=== PATIENT | female | born 1970 | race Caucasian/White ===

== ENCOUNTER 2021-02-23 03:42 | Inpatient (IN) | payer OTHER ==
--- NOTE | 2021-02-22 20:00 | NUR ---
REC'D REPORT ON PT AND ASSUMED CARE. INITIAL ASSESSMENT COMPLETED AND RECORDED PER FLOW SHEET. WILL ANSWER QUESTIONS WITH SHORT REPLIES BUT ONLY TALKS MINIMALLY THEN DOZES BACK OFF. PRODUCTIVE SOUNDING COUGH NOTED WITH RHONCHI AUSCULTATED IN UPPER LOBES. O2 SATS 99-100%. SCANT AMOUNT OF URINE NOTED IN RAMOS BAG. SCDs IN PLACE. WILL MONITOR FSBS AND ADJUST ACCORDINGLY.
[~2021-02-23] VITALS: Ht 165.1 cm; Wt 109.3 kg
[2021-02-23] VITALS (16 sets, daily range): BP systolic 86–130; BP diastolic 41–69; Ht 165.1 cm; Wt 109.3 kg
[2021-02-23 04:30] LABS: BILIRUBIN - TOTAL 0.36 mg/dL (0.2-1.3); CALCIUM 9.1 mg/dL (8.5-10.1); CREATININE - SERUM 4.2 mg/dL (0.6-1.3); MAGNESIUM - SERUM 2.1 mg/dL (1.8-2.4); PROTEIN - SERUM 6.1 g/dL (6.4-8.2)
[2021-02-23 04:42] LABS: ANION GAP 33.6 mmol/L (8-16)
[2021-02-23 04:45] LABS: CARBON DIOXIDE 9.1 mmol/L (21.0-32.0); POTASSIUM - SERUM 7.7 mmol/L (3.5-5.1)
[2021-02-23] MEDS ORDERED: HUMALOG 30100 UNITS/ (04:49)
[2021-02-23] MEDS ORDERED: TACROLIMUS ANHYD1 MG PO (04:50)
[2021-02-23] MEDS ORDERED: PEPCID AC20 MG PO (04:50)
[2021-02-23] MEDS ORDERED: CELLCEPT500 MG PO (04:50)
[2021-02-23 04:51] LABS: BASOPHILS 0.7 % (0-2); EOSINOPHILS 0 % (0-7); HEMATOCRIT 33.5 % (36.0-48.0); HEMOGLOBIN 9.1 g/dL (12-16); LYMPHOCYTES 1.3 % (15-50); MCH 25.5 pg (26.0-34.0); MCHC 27.1 g/dL (31.0-37.0); MCV 94.1 fL (80.0-100.0); MEAN PLATELET VOLUME 10.2 fL (7.4-10.4); MONOCYTES 6.3 % (2-11); NEUTROPHILS 91.7 % (40-80); PLATELET COUNT 368 10x3/uL (130-400); RBC 3.56 10x6/uL (4.00-5.40); RDW 14.3 % (11.5-14.5)
[2021-02-23] MEDS ORDERED: LIPITOR40 MG PO (04:51)
[2021-02-23] MEDS ORDERED: SODIUM BICARBO650 MG PO (04:51)
[2021-02-23] MEDS ORDERED: PREDNISONE5 MG PO (04:51)
[2021-02-23] MEDS ORDERED: TOPROL XL100 MG PO (04:52)
[2021-02-23] MEDS ORDERED: AZITHROMYCIN500 MG PO (04:52)
[2021-02-23] MEDS ORDERED: DIFLUCAN100 MG PO (04:53)
[2021-02-23] MEDS ORDERED: FERROUS SULFAT325 MG PO (04:53)
[2021-02-23] MEDS ORDERED: LEVO-T88 MCG PO (04:53)
[2021-02-23] MEDS ORDERED: LISINOPRIL5 MG PO (04:53)
[2021-02-23] MEDS ORDERED: BAYER CHEWABLE81 MG PO (04:54)
[2021-02-23] MEDS ORDERED: NORVASC2.5 MG PO (04:54)
[2021-02-23 05:20] LABS: BILIRUBIN NEGATIVE (NEGATIVE); KETONE 2+ mg/dL (NEGATIVE); NITRITE NEGATIVE (NEGATIVE); UROBILINOGEN NORMAL mg/dL (< 2)
[2021-02-23 05:21] LABS: BACTERIA RARE HPF (NONE SEEN); GRANULAR CAST 0-5 LPF (NONE SEEN); SQUAMOUS EPITHELIAL 0-5 HPF (0-4); WHITE CELLS - URINE 0-5 HPF (0-4)
[2021-02-23 06:31] LABS: CALCIUM 8.9 mg/dL (8.5-10.1); CREATININE - SERUM 4.3 mg/dL (0.6-1.3)
[2021-02-23 06:40] LABS: ANION GAP 34.7 mmol/L (8-16); CARBON DIOXIDE 5.9 mmol/L (21.0-32.0); POTASSIUM - SERUM 7.6 mmol/L (3.5-5.1)
[2021-02-23 10:25] LABS: CALCIUM 7.6 mg/dL (8.5-10.1); CREATININE - SERUM 3.9 mg/dL (0.6-1.3)
[2021-02-23 10:33] LABS: ANION GAP 22.4 mmol/L (8-16); CARBON DIOXIDE 15.3 mmol/L (21.0-32.0); POTASSIUM - SERUM 5.7 mmol/L (3.5-5.1)
[2021-02-23 14:42] LABS: CALCIUM 8.1 mg/dL (8.5-10.1); CREATININE - SERUM 4.4 mg/dL (0.6-1.3)
[2021-02-23 14:43] LABS: ANION GAP 15.2 mmol/L (8-16); CARBON DIOXIDE 19.5 mmol/L (21.0-32.0); POTASSIUM - SERUM 4.7 mmol/L (3.5-5.1)
[2021-02-23 17:21] LABS: BILIRUBIN NEGATIVE (NEGATIVE); KETONE LARGE mg/dL (NEGATIVE); NITRITE NEGATIVE (NEGATIVE); UROBILINOGEN NORMAL mg/dL (< 2)
[2021-02-23 17:22] LABS: AMORPHOUS SEDIMENT >1+ LPF (NONE SEEN); BACTERIA MANY HPF (NONE SEEN); SQUAMOUS EPITHELIAL NONE SEEN HPF (0-4); WHITE CELLS - URINE NONE SEEN HPF (0-4)
[2021-02-23 19:08] LABS: ANION GAP 14.6 mmol/L (8-16); CALCIUM 8.3 mg/dL (8.5-10.1); CREATININE - SERUM 4.5 mg/dL (0.6-1.3); POTASSIUM - SERUM 4.6 mmol/L (3.5-5.1)
[2021-02-23 23:04] LABS: ANION GAP 17.7 mmol/L (8-16); CALCIUM 8.5 mg/dL (8.5-10.1); CARBON DIOXIDE 18.3 mmol/L (21.0-32.0); CREATININE - SERUM 4.7 mg/dL (0.6-1.3)
--- NOTE | 2021-02-23 23:15 | NUR ---
LYING QUIETLY, ADJUSTING INSULIN PER PROTOCOL BASED ON RESULTS. VSS. O2 SAT REMAINS 99-100% ON 2L.
[2021-02-24] VITALS (24 sets, daily range): BP systolic 130–176; BP diastolic 51–82
[2021-02-24 02:55] LABS: ANION GAP 16.4 mmol/L (8-16); CALCIUM 8.3 mg/dL (8.5-10.1); CARBON DIOXIDE 20.6 mmol/L (21.0-32.0); CREATININE - SERUM 4.7 mg/dL (0.6-1.3)
--- NOTE | 2021-02-24 05:00 | NUR ---
FSBS STARTING TO GO UP, ADJUSTING INSULIN
[2021-02-24 06:38] LABS: CALCIUM 8.2 mg/dL (8.5-10.1); CARBON DIOXIDE 17.8 mmol/L (21.0-32.0); CREATININE - SERUM 4.7 mg/dL (0.6-1.3); MAGNESIUM - SERUM 1.6 mg/dL (1.8-2.4); PHOSPHOROUS 3.8 mg/dL (2.5-4.9); POTASSIUM - SERUM 4.8 mmol/L (3.5-5.1)
[2021-02-24 06:59] LABS: HEMATOCRIT 28.7 % (36.0-48.0); MCH 25.9 pg (26.0-34.0); MCHC 31.4 g/dL (31.0-37.0); MCV 82.5 fL (80.0-100.0); MEAN PLATELET VOLUME 8.7 fL (7.4-10.4); PLATELET COUNT 325 10x3/uL (130-400); RBC 3.47 10x6/uL (4.00-5.40); RDW 13.7 % (11.5-14.5)
[2021-02-24 09:20] LABS: ANION GAP 15.8 mmol/L (8-16); CALCIUM 8.3 mg/dL (8.5-10.1); CARBON DIOXIDE 18.9 mmol/L (21.0-32.0); CREATININE - SERUM 4.7 mg/dL (0.6-1.3); POTASSIUM - SERUM 4.7 mmol/L (3.5-5.1)
--- NOTE | 2021-02-24 10:39 | NUR ---
Dr. Kim notified of consult.
[2021-02-24 13:13] LABS: ANION GAP 14.9 mmol/L (8-16); CALCIUM 8.3 mg/dL (8.5-10.1); CARBON DIOXIDE 19.5 mmol/L (21.0-32.0); CREATININE - SERUM 4.4 mg/dL (0.6-1.3); POTASSIUM - SERUM 4.4 mmol/L (3.5-5.1)
[2021-02-24 13:26] LABS: ANISOCYTOSIS OCC; LYMPHOCYTES 14 % (15-50); MONOCYTES 12 % (2-11); NEUTROPHILS 74 % (40-80); PLATELET ESTIMATE NORMAL
--- NOTE | 2021-02-24 15:15 | NUR ---
Dr. Dawson notified of consult.
[2021-02-24 16:29] LABS: ANION GAP 15.6 mmol/L (8-16); CARBON DIOXIDE 19.3 mmol/L (21.0-32.0); CREATININE - SERUM 4.1 mg/dL (0.6-1.3); POTASSIUM - SERUM 4.9 mmol/L (3.5-5.1)
[2021-02-24 21:59] LABS: CALCIUM 7.9 mg/dL (8.5-10.1); CARBON DIOXIDE 18.5 mmol/L (21.0-32.0); CREATININE - SERUM 3.9 mg/dL (0.6-1.3); POTASSIUM - SERUM 4.5 mmol/L (3.5-5.1)
[2021-02-25] VITALS (24 sets, daily range): BP systolic 135–180; BP diastolic 54–86
[2021-02-25 02:09] LABS: ANION GAP 15.1 mmol/L (8-16); CALCIUM 7.9 mg/dL (8.5-10.1); CARBON DIOXIDE 20.1 mmol/L (21.0-32.0); CREATININE - SERUM 3.6 mg/dL (0.6-1.3); POTASSIUM - SERUM 4.2 mmol/L (3.5-5.1)
[2021-02-25 05:57] LABS: BASOPHILS 0.5 % (0-2); EOSINOPHILS 1.3 % (0-7); HEMATOCRIT 28.1 % (36.0-48.0); HEMOGLOBIN 8.9 g/dL (12-16); LYMPHOCYTES 6.2 % (15-50); MCH 25.9 pg (26.0-34.0); MCHC 31.5 g/dL (31.0-37.0); MCV 82.2 fL (80.0-100.0); MEAN PLATELET VOLUME 9.2 fL (7.4-10.4); MONOCYTES 7.1 % (2-11); NEUTROPHILS 84.9 % (40-80); PLATELET COUNT 295 10x3/uL (130-400); RBC 3.42 10x6/uL (4.00-5.40); RDW 13.9 % (11.5-14.5)
[2021-02-25 06:21] LABS: WBC 16.7 10x3/uL (4.8-10.8)
[2021-02-25 06:26] LABS: ALBUMIN 1.9 g/dL (3.4-5.0); ANION GAP 13.6 mmol/L (8-16); BILIRUBIN - TOTAL 0.17 mg/dL (0.2-1.3); CALCIUM 8.1 mg/dL (8.5-10.1); CARBON DIOXIDE 20.5 mmol/L (21.0-32.0); CREATININE - SERUM 3.4 mg/dL (0.6-1.3); POTASSIUM - SERUM 4.1 mmol/L (3.5-5.1); PROTEIN - SERUM 4.9 g/dL (6.4-8.2)
[2021-02-25 09:08] LABS: ANION GAP 11.9 mmol/L (8-16); CALCIUM 7.9 mg/dL (8.5-10.1); CARBON DIOXIDE 19.1 mmol/L (21.0-32.0); CREATININE - SERUM 3.1 mg/dL (0.6-1.3)
[2021-02-25 10:11] LABS: HEPATITIS C ANTIBODY <0.1 S/CO RAT (0.0-0.9)
[2021-02-25 13:04] LABS: ANION GAP 10.8 mmol/L (8-16); CARBON DIOXIDE 20.8 mmol/L (21.0-32.0); POTASSIUM - SERUM 4.6 mmol/L (3.5-5.1)
[2021-02-25 17:04] LABS: ANION GAP 12.7 mmol/L (8-16); CALCIUM 7.9 mg/dL (8.5-10.1); CREATININE - SERUM 2.7 mg/dL (0.6-1.3); POTASSIUM - SERUM 4.7 mmol/L (3.5-5.1)
[2021-02-25 21:07] LABS: ANION GAP 12.7 mmol/L (8-16); CALCIUM 8.1 mg/dL (8.5-10.1); CARBON DIOXIDE 22.4 mmol/L (21.0-32.0); CREATININE - SERUM 2.6 mg/dL (0.6-1.3); POTASSIUM - SERUM 4.1 mmol/L (3.5-5.1)
--- NOTE | 2021-02-25 21:34 | NUR ---
CONTACTED DR. RIOJAS OFFICE FOR ONCALL REGARDING CLOSED ANION GAP
--- NOTE | 2021-02-25 21:55 | NUR ---
DR. GLEZ GAVE ORDERS TO STOP INSULIN DRIP. SEE MAR FOR NEW ORDERS
--- NOTE | 2021-02-25 23:42 | NUR ---
I have reviewed this patient and I concur with the Shift Assessment completed by the Licensed Practical Nurse today this shift.
[2021-02-26] VITALS (14 sets, daily range): BP systolic 132–163; BP diastolic 61–80
--- NOTE | 2021-02-26 00:56 | NUR ---
SAT UP IN RECLINER FROM ABOUT 2230 UNTIL 0030. TOLERATED WELL
[2021-02-26 05:12] LABS: BASOPHILS 1.4 % (0-2); EOSINOPHILS 2.5 % (0-7); HEMATOCRIT 27.4 % (36.0-48.0); HEMOGLOBIN 8.7 g/dL (12-16); LYMPHOCYTES 10.9 % (15-50); MCH 26.2 pg (26.0-34.0); MCHC 31.8 g/dL (31.0-37.0); MCV 82.4 fL (80.0-100.0); MONOCYTES 4.8 % (2-11); NEUTROPHILS 80.4 % (40-80); PLATELET COUNT 278 10x3/uL (130-400); RBC 3.33 10x6/uL (4.00-5.40); RDW 13.5 % (11.5-14.5); WBC 13.2 10x3/uL (4.8-10.8)
[2021-02-26 05:37] LABS: CARBON DIOXIDE 18.7 mmol/L (21.0-32.0); CREATININE - SERUM 2.4 mg/dL (0.6-1.3); POTASSIUM - SERUM 4.7 mmol/L (3.5-5.1)
--- NOTE | 2021-02-26 07:56 | HP ---
PATIENT: RAMSES GREGG MEDICAL RECORD: [id number] ACCOUNT: [id number] LOCATION:[facility]2302 : 74 ADMISSION DATE: 02/23/21 PCP: No PCP HISTORY AND PHYSICAL EXAMINATION REASON FOR ADMISSION: Elevated blood sugar and confusion and dry mouth. HISTORY OF PRESENT ILLNESS: The patient is a 50-year-old female, type 1 diabetic with previous history of renal transplant, who has had some insulin pump issues, recently said it has been failing and malfunctioning within the last day. She lives in [place] where she was followed by physician, Dr. Jonah Guillaume. brought her to the ED this morning because of these symptoms. Her blood sugar was in excess of 1000 and pH of 7.20. She had nausea, but not vomiting. She feels just generally ill as when she had DKA in the past. She denies any recent fever, dysuria or cough. PAST MEDICAL HISTORY: Hypertension, hyperlipidemia, type 1 diabetes mellitus with renal transplant, has history of cryptococcal pneumonia and had pneumonia and treated at [facility] in 2019, hypothyroidism, anemia of chronic disease. SURGICAL HISTORY: Renal transplant. MEDICATIONS: Humalog insulin, dose unknown; Prograf 3 mg p.o. q.12 hours; CellCept 1000 mg p.o. b.i.d.; Pepcid 20 mg b.i.d.; sodium bicarbonate 650 mg p.o. b.i.d.; Lipitor 40 mg at bedtime; prednisone 5 mg daily; Zithromax 500 mg daily; Toprol-XL 100 mg daily; levothyroxine 88 mcg p.o. q.a.m. a.c.; Feosol 325 mg p.o. daily; Diflucan 100 mg a day; lisinopril 5 mg a day; aspirin 81 mg daily; Norvasc 2.5 mg daily. ALLERGIES: None mentioned. FAMILY HISTORY: Unknown and the patient cannot answer questions currently. SOCIAL HISTORY: Reportedly, she has never smoked cigarettes or used alcohol or illicit drugs. She is and lives in [place], visiting her mother here today. REVIEW OF SYSTEMS: GENERAL: General malaise for the last 48 hours, lethargic and nauseated without eating or drinking much. RESPIRATORY: Denies shortness of breath or cough. CARDIOVASCULAR: Denies chest pain. GASTROINTESTINAL: Nausea without vomiting. Admits to mild abdominal pain. GENITOURINARY: Denies dysuria or incontinence. GYNECOLOGICAL: No vaginal bleeding. ENDOCRINE: Has had polyuria, polydipsia, but no heat or cold intolerance. NEUROLOGIC: Has been somewhat confused in the last 12 hours. Denies any motor or sensory deficits, but again her history is poor. INTEGUMENT: No itching. PHYSICAL EXAMINATION: GENERAL: The patient is arousable to vocal commands, but hard to understand. VITAL SIGNS: Her pulse is 90, respirations are 28, blood pressure was 110/41 with a sat of 100% on room air and temperature 97.3. Generally lethargic. HEENT: Oropharynx shows dry mucous membranes. Pupils are equal and reactive. HISTORY AND PHYSICAL [id number] MCNULLY,RAMSES Sclerae nonicteric. NECK: Supple. CHEST: No wheezes or rales appreciated. HEART: Regular rate without murmur. ABDOMEN: Obese, soft, nontender throughout. Bowel sounds are active. EXTREMITIES: 1+ pretibial edema. GYNECOLOGICAL: Deferred. SKIN: Nonicteric. No petechia appreciated. NEUROLOGIC: The patient is arousable, has difficult to understand speech. No motor deficits were appreciated. No obvious sensory deficits are noted. LABORATORY AND DIAGNOSTIC DATA: EKG shows sinus rhythm with a rate of 82, no ST elevation. ABG showed a pH of 7.208, pO2 is 126, base excess was -20.6. Lactic acid was 2.76, potassium 7.5. Glucose over 1000. Sodium 124. Serum CO2 is 9.1, BUN 65, creatinine is 4.2, glucose 1091, calcium 9.1, magnesium 2.1. Liver functions are normal. White count is 21,000, H&H of 9.1 and 33.5, and platelet count of 368,000. Ketones were moderate in serum urine, 2+ protein, 2+ ketones, nitrite negative, 0-5 white and red cells. Chest x-ray, I have not seen as yet, reported normal. IMPRESSION: Type 1 diabetes mellitus with diabetic ketoacidosis and insulin pump malfunction, metabolic acidosis, hyperkalemia, hyponatremia due to hyperglycemia, elevated lactate, renal transplant patient, [id number] renal insufficiency. PLAN: The patient will be admitted to the ICU. She will be given 2 liters of saline. We will repeat another liter of saline, place on 200 cc per hour. Coon will be placed. She will be given IV insulin in the ED, I have repeated 10 units currently and blood sugars down to 895. Renal consult has been obtained. Discussed care with the ICU nurse. Further workup pending clinical course. TRANSINT:[id number] Voice Confirmation ID: [id number] DOCUMENT ID: [id number] CARMEN RIOJAS MD at 0756 CC: [id number] DICTATION DATE: 02/23/21 08 DIVISION OPERATIONS MANAGER: 02/25/21 1016 ADM IN [facility] [address] [place] [address]
--- NOTE | 2021-02-26 09:06 | NUR ---
Nutrition follow-up: Diet advanced to consistent CHO PO intake continues poor at this time Labs reviewed: glucuse under better control but still high Wt: 241# Off insulin drip; to move to floor soon Renl function improving Will provide food choices with selective menus and honor food preferences within diet restrictions. Will offer Glucerna Shake. RDN will reassess: 02/28/21
[2021-02-26 10:42] LABS: ANION GAP 12.5 mmol/L (8-16); CALCIUM 7.8 mg/dL (8.5-10.1); CREATININE - SERUM 2.2 mg/dL (0.6-1.3); POTASSIUM - SERUM 4.5 mmol/L (3.5-5.1)
--- NOTE | 2021-02-26 15:00 | NUR ---
TRIALYSIS CATHETER REMOVED. PT LAID FLAT AND PRESSURE HELD FOR 7 MINUTES. NO SIGN OF BLEEDING OR SWELLING NOTED. DRESSING APPLIED. BALLOON DEFLATED, RAMOS REMOVED WITH CATH TIP INTACT. DRESSING TO LEFT UPPER ARM PIV CHANGED. BLISTER NOTED. DRESSING CDI.
[2021-02-26 15:53] LABS: ANION GAP 14.1 mmol/L (8-16); CARBON DIOXIDE 21.6 mmol/L (21.0-32.0); CREATININE - SERUM 2.5 mg/dL (0.6-1.3); POTASSIUM - SERUM 4.7 mmol/L (3.5-5.1)
--- NOTE | 2021-02-26 16:25 | NUR ---
PATIENT TO UNIT AT THIS TIME. FAMILY MEMBER AT BEDSIDE. DENIES NEEDS. FREE FROM SIGNS OF DISTRESS. BED LOW POSITION, CALL LIGHT IN REACH. IV SALINE LOCKED. WILL CONTINUE TO MONITOR.
--- NOTE | 2021-02-26 19:42 | NUR ---
BLOOD SUGAR AT 1630 WAS 61. GAVE ORANGE JUICE, MILK, LUCILA CRACKERS, AND PACK OF PEANUT BUTTER. PATIENT ALSO ATE SOME OF DINNER TRAY. RECHECKED AT THIS TIME AND RESULT WAS 100.
--- NOTE | 2021-02-26 20:00 | NUR ---
ALERT AMBULATING IN ROOM, GAIT STEADY, DENIES NEEDS AT THIS TIME, SEE SHIFT ASSESSMENT, CALL LIGHT I NREACH
[2021-02-26 20:25] LABS: ANION GAP 14.7 mmol/L (8-16); CALCIUM 8.2 mg/dL (8.5-10.1); CARBON DIOXIDE 20.8 mmol/L (21.0-32.0); CREATININE - SERUM 2.4 mg/dL (0.6-1.3); POTASSIUM - SERUM 4.5 mmol/L (3.5-5.1)
[2021-02-27] VITALS: BP 130/61
[2021-02-27 01:05] LABS: ANION GAP 15.4 mmol/L (8-16); CALCIUM 7.9 mg/dL (8.5-10.1); CREATININE - SERUM 2.4 mg/dL (0.6-1.3); POTASSIUM - SERUM 4.4 mmol/L (3.5-5.1)
[2021-02-27 04:00] VITALS: BP 138/61
[2021-02-27 06:18] LABS: ANION GAP 12.8 mmol/L (8-16); CARBON DIOXIDE 21.9 mmol/L (21.0-32.0); CREATININE - SERUM 2.5 mg/dL (0.6-1.3)
[2021-02-27 06:26] LABS: CALCIUM 8.1 mg/dL (8.5-10.1)
[2021-02-27 06:28] LABS: POTASSIUM - SERUM 3.7 mmol/L (3.5-5.1)
[2021-02-27 08:10] LABS: ANION GAP 14.1 mmol/L (8-16); CALCIUM 8.1 mg/dL (8.5-10.1); CARBON DIOXIDE 21.1 mmol/L (21.0-32.0); CREATININE - SERUM 2.4 mg/dL (0.6-1.3); POTASSIUM - SERUM 4.2 mmol/L (3.5-5.1)
--- NOTE | 2021-02-27 08:22 | NUR ---
PT SITTING UP IN CHAIR AT BEDSIDE. RESP EVEN AND UNLABORED. PT EATING BREAKFAST AND ANNA MARIE WELL. AM MEDS ADMINISTERED AT THIS TIME. DENIES PAIN AT THIS TIME. SALINE LOC TO RIGHT WRIST AND LEFT UPPER ARM INTACT, BOTH SITES WITHOUT REDNESS OR EDEMA. PT DENIES FUTHER NEEDS AT THIS TIME. CL WITHIN REACH. ENCOURAGED TO CALL WITH NEEDS CONTINUE POC
[2021-02-27 08:51] VITALS: BP 140/65
[2021-02-27 11:00] VITALS: BP 130/68
[2021-02-27 11:49] LABS: ANION GAP 12.8 mmol/L (8-16); CARBON DIOXIDE 21.9 mmol/L (21.0-32.0); CREATININE - SERUM 2.3 mg/dL (0.6-1.3); POTASSIUM - SERUM 4.7 mmol/L (3.5-5.1)
[2021-02-27 16:16] LABS: ANION GAP 14.1 mmol/L (8-16); CALCIUM 8.1 mg/dL (8.5-10.1); CARBON DIOXIDE 21.6 mmol/L (21.0-32.0); CREATININE - SERUM 2.3 mg/dL (0.6-1.3); POTASSIUM - SERUM 4.7 mmol/L (3.5-5.1)
[2021-02-27 20:00] VITALS: BP 142/65
[2021-02-27 20:20] LABS: ANION GAP 11.8 mmol/L (8-16); CALCIUM 7.9 mg/dL (8.5-10.1); CARBON DIOXIDE 23.1 mmol/L (21.0-32.0); CREATININE - SERUM 2.4 mg/dL (0.6-1.3); POTASSIUM - SERUM 4.9 mmol/L (3.5-5.1)
[2021-02-28] VITALS: BP 149/58
[2021-02-28 01:03] LABS: ANION GAP 11.9 mmol/L (8-16); CALCIUM 7.9 mg/dL (8.5-10.1); CARBON DIOXIDE 23.8 mmol/L (21.0-32.0); CREATININE - SERUM 2.3 mg/dL (0.6-1.3); POTASSIUM - SERUM 4.7 mmol/L (3.5-5.1)
[2021-02-28 04:00] VITALS: BP 149/53
[2021-02-28 06:36] LABS: ANION GAP 12.6 mmol/L (8-16); CALCIUM 8.5 mg/dL (8.5-10.1); CARBON DIOXIDE 21.6 mmol/L (21.0-32.0); CREATININE - SERUM 2.3 mg/dL (0.6-1.3); POTASSIUM - SERUM 4.2 mmol/L (3.5-5.1)
--- NOTE | 2021-02-28 07:39 | NUR ---
ALERT AND ORIENTED. ASSESSMENT COMPLETE. DENIES NEEDS. BED LOW. CALL SILVERIO AND PERSONAL ITEMS IN REACH. WILL CONTINUE TO MONITOR.
[2021-02-28 08:00] VITALS: BP 156/73
[2021-02-28 09:12] LABS: ANION GAP 12.5 mmol/L (8-16); CALCIUM 8.4 mg/dL (8.5-10.1); CARBON DIOXIDE 22.8 mmol/L (21.0-32.0); CREATININE - SERUM 2.2 mg/dL (0.6-1.3); POTASSIUM - SERUM 4.3 mmol/L (3.5-5.1)
--- NOTE | 2021-02-28 09:42 | NUR ---
DC EDUCATION PROVIDED BOTH WRITTEN AND VERBAL. VERBALIZED UNDERSTANDING. DENIES NEEDS OR QUESTIONS. IV REMOVED FROM RIGHT HAND WITH TIP INTACT. WAITING RIDE.
--- NOTE | 2021-02-28 10:21 | NUR ---
PATIENT DC HOME WITH WITH ALL BELONGINGS.
--- NOTE | 2021-02-28 11:56 | OP ---
PATIENT NAME: RAMSES GREGG MEDICAL RECORD: [id number] :74 LOCATION:[facility] [place] ADMISSION DATE:02/23/21 SURGEON: RYAN LANG MD DATE OF OPERATION: 02/23/2021 PREOPERATIVE DIAGNOSES: 1. Acute renal failure. 2. Diabetic ketoacidosis. 3. Diabetes mellitus. 4. History of renal transplant. POSTOPERATIVE DIAGNOSES: 1. Acute renal failure. 2. Diabetic ketoacidosis. 3. Diabetes mellitus. 4. History of renal transplant. PROCEDURE: 1. Attempted right IJ Trialysis catheter placement. 2. Placement of left femoral 20-cm Trialysis catheter. SURGEON: Ryan Lang MD DESCRIPTION OF PROCEDURE: The patient's right neck was prepped and draped in sterile fashion. A 5 mL of 1% lidocaine with epinephrine was infused into the surrounding tissues. Using ultrasound guidance, a needle was used to cannulate the right internal jugular vein. Multiple attempts were made to pass a wire, but I was never able to get this to pass over about 10 cm. The patient had a history of HemoSplit catheters in the past and it was felt that she probably had some stenosis. At this point, we discontinued any more tries in the right IJ. We inspected the patient's left IJ and it was completely occluded. We then found that the patient's left femoral vein was open and patent. A new prep was performed and the patient's left groin region and 5 mL of 1% lidocaine was infused into the surrounding tissues. Using ultrasound guidance, a needle was used to cannulate the left femoral vein and a guidewire was advanced with ease. Over this wire, a dilator was placed followed by the Trialysis catheter. This catheter aspirated nonpulsatile dark blood and flushed easily in all 3 ports. This was sutured into place with 2-0 nylon and dressed appropriately. COMPLICATIONS: None. CONDITION: Fair. ANESTHESIA: Local. BLOOD LOSS: Minimal. Procedure done in the ICU at the bedside. TRANSINT:[id number] Voice Confirmation ID: [id number] DOCUMENT ID: [id number] OPERATIVE REPORT [id number] MARYSOLRAMSES RYAN LANG MD at 1156 CC: [id number] DICTATION DATE: 02/23/21 1229 MAITRE D': 02/25/21 1507 DIS IN 02/28/21 [facility] [address] [place] [address]
== END 2021-02-28 10:21 | disposition home or self-care (01) | DRG 638 ==
LOC: D.ER 03:42 → D.ICU 04:45 → D.MS 04:45
PROVIDERS: Family Medicine Adult Medicine; Internal Medicine; Student in an Organized Health Care Education/Training Program; ADMIT Family Medicine; ATTEND Family Medicine
DX: E10.10 Type 1 diabetes mellitus with ketoacidosis without coma (principal); N17.9 Acute kidney failure, unspecified; Z94.0 Kidney transplant status; E87.1 Hypo-osmolality and hyponatremia; D84.9 Immunodeficiency, unspecified; Z79.4 Long term (current) use of insulin; E87.5 Hyperkalemia; N94.89 Other specified conditions associated with female genital organs and menstrual cycle; E10.22 Type 1 diabetes mellitus with diabetic chronic kidney disease; N18.9 Chronic kidney disease, unspecified; Z96.41 Presence of insulin pump (external) (internal)